=== PATIENT | male | born 1980 | race Caucasian/White ===

== ENCOUNTER 2020-06-04 13:04 | Emergency (ER) | payer OTHER, SELFPAY ==
[2020-06-04 13:17] VITALS: BP 168/104; PULSE 80; RESP 18; TEMP 36.9; O2SAT 100
--- NOTE | 2020-06-04 13:36 | ED.SKABFB ---
HPI - Skin/Abscess/Foreign Bdy General Chief complaint: Skin/Abscess/Foreign Body Stated complaint: spider bite on buttocks Time Seen by Provider: 06/04/20 13:09 History of Present Illness HPI narrative: Patient is a 40-year-old male who presents ER with concerns for abscess/infection to his left buttock. Reported he started having pain 2 days ago and is since increasing discomfort and redness. No fevers or chills or sweats. No drainage. Did not see a spider bite him. Related Data Home Medications Medication Instructions Recorded Confirmed lorazepam 06/04/20 Allergies Allergy/AdvReac Type Severity Reaction Status Date / Time No Known Allergies Allergy Unverified 06/04/20 13:16 Review of Systems Constitutional: Constitutional: Denies chills and Denies fever(s) Musculoskeletal: Musculoskeletal: Denies myalgias and Denies muscle cramps Integumentary/Breasts: Skin/Breast: Denies pruritus and Reports erythema PMFSH Past Medical History Medical History (Updated 06/04/20 @ 13:59 by Jefferson Oviedo MD) Anxiety Surgical History Surgical History (Updated 06/04/20 @ 13:37 by Jefferson Oviedo MD) No history of previous surgery Social History Social History (Updated 06/04/20 @ 13:37 by Jefferson Oviedo MD) Substance use: never Exam Narrative: Exam Narrative: GENERAL: Well-appearing, well-nourished, and in no acute distress. HEAD: Normocephalic, atraumatic. EXTREMITIES: Normal range of motion. No edema. SKIN: Warm, dry. Left buttock with erythema and induration with a small skin defect no bigger than 4 mm x 4 mm. No fluctuance noted. NEURO: Alert and oriented x3. PSYCH: Normal mood and affect. Course Vital Signs Vital signs: Vital Signs Temperature 98.5 F 06/04/20 13:17 Pulse Rate 80 06/04/20 13:17 Respiratory Rate 18 06/04/20 13:17 Blood Pressure 168/104 H 06/04/20 13:17 Pulse Oximetry 100 06/04/20 13:17 Temperature 98.5 F 06/04/20 13:17 Pulse Rate 80 06/04/20 13:17 Respiratory Rate 18 06/04/20 13:17 Blood Pressure 168/104 H 06/04/20 13:17 Pulse Oximetry 100 06/04/20 13:17 Procedures Abscess I/D other: Date of Incision: 06/04/20 Time of Incision: 13:40 Side (if applicable): left Local Anesthetic: lidocaine 1% and with epi Amount of anesthesia used (mL): 10 Technique: incised with #11 blade Irrigation: No Packing used?: plain I&D Results: Pus Discharge Plan Discharge Clinical Impression: Abscess of skin or subcutaneous tissue Patient Disposition: Home, Self-Care Condition: Stable Instructions: Abscess (ED) Additional Instructions: Return the ER if you have increased pain, you have fever over 100.4 ?F, or you have additional concerns. Take your full course of antibiotics. Prescriptions: New sulfamethoxazole-trimethoprim [Bactrim DS] 800-160 mg tablet 1 tablet PO Q12H Qty: 14 RF: 0 tramadol 50 mg tablet 50 mg PO Q6H PRN (Reason: pain) Qty: 10 RF: 0 No Action lorazepam 1 mg tablet RF: 0 Follow-up/Referrals: Hermes Jameson MD [Physician] - 1 Week PHYSICIAN,BELT BACK OPERATOR [Primary Care Provider] -
== END 2020-06-04 14:07 | disposition home or self-care (01) ==
PROVIDERS: Emergency Provider Emergency Medicine
DX: L02.31 Cutaneous abscess of buttock (principal); F41.9 Anxiety disorder, unspecified
CPT/HCPCS: 10061; 99282

== ENCOUNTER 2020-08-26 17:58 | Emergency (ER) | payer OTHER, SELFPAY | END 2020-08-26 19:00 | disposition left against medical advice (07) | LOC: ANHED 18:29 | DX: Z53.21 Procedure and treatment not carried out due to patient leaving prior to being seen by health care provider (principal) | CPT/HCPCS: 99199 ==

== ENCOUNTER 2020-12-28 13:02 | Emergency (ER) | payer OTHER, SELFPAY ==
[2020-12-28 13:09] VITALS: BP 162/83; PULSE 65; RESP 20; TEMP 36.3; O2SAT 100
--- NOTE | 2020-12-28 15:06 | PC.NURSE ---
CALLED FOR RECHECK VITAL SIGNS. NO RESPONSE
--- NOTE | 2020-12-28 15:58 | PC.NURSE ---
PT CALLED FOR VITALS A SECOND TIME. NO ANSWER.
== END 2020-12-28 15:58 | disposition left against medical advice (07) ==
DX: R51.9 Headache, unspecified (principal)
CPT/HCPCS: 99199

== ENCOUNTER 2023-09-27 21:08 | Emergency (ER) | payer OTHER, SELFPAY ==
--- NOTE | ~2023-09-27 | XR_ITS ---
EXAMINATION: XR chest 2V Exam Date/Time: 09/27/2023 22:00 CDT HISTORY: SOB, cough, tb exposure Comparison: 08/18/2015. RESULT: Lines, tubes, and devices: None. Lungs and pleura: Clear. Cardiomediastinal silhouette: Stable. Other: No acute osseous or upper abdominal finding. Degenerative changes in the bilateral shoulders. Loose joint bodies in the right shoulder. IMPRESSION: No acute cardiopulmonary process. Reviewed, dictated and finalized at location K.
--- NOTE | 2023-09-27 21:40 | ECG_ITS ---
SEE SCANNED COPY FOR CONFIRMED REPORT MTDD
[2023-09-27 21:52] VITALS: BP 182/101; PULSE 92; RESP 16; TEMP 36.9; O2SAT 96
[2023-09-27 22:05] LABS: Basophils Absolute Auto 0.1 K/mm3 (0.0-0.1); Basophils Percent Auto 0.6 % (0.2-1.2); Eosinophils Absolute Auto 0.4 K/mm3 (0-0.3); Eosinophils Percent Auto 2.6 % (0-4.4); Hematocrit 46.5 % (42.0-52.0); Hemoglobin 14.8 g/dL (14.0-18.0); Immature Granulocyte Absolute 0.08 K/mm3 (0.00-0.031); Immature Granulocyte Percent A 0.6 % (0-0.5); Lymphocytes Absolute Auto 1.25 K/mm3 (0.9-3.2); Lymphocytes Percent Auto 9.4 % (18.3-44.2); Mean Corpuscular HGB Conc 31.8 g/dl (32-36); Mean Corpuscular Hemoglobin 29.1 pg (26-34); Mean Corpuscular Volume 91.4 fl (80-100); Mean Platelet Volume 8.5 fl (7.4-10.4); Monocytes Absolute Auto 0.9 K/mm3 (0.1-0.6); Monocytes Percent Auto 6.6 % (2.6-8.5); Neutrophils Absolute Auto 10.7 K/mm3 (1.3-6.7); Neutrophils Percent Auto 80.2 % (45.5-73.1); Platelet Count Result 407 k/mm3 (150-375); Red Blood Count 5.09 M/mm3 (4.6-6.20); White Blood Count 13.3 K/mm3 (4.5-10.0)
[2023-09-27 22:15] LABS: Alanine Aminotransferase 40 U/L (6-50); Albumin Level 4.4 g/dL (3.5-5.1); Alkaline Phosphatase 109 U/L (38-126); Anion Gap 6 mmol/L (4-12); Aspartate Amino Transferase 35 U/L (17-59); Bilirubin,Total 0.6 mg/dL (0.2-1.3); Blood Urea Nitrogen 15 mg/dL (9-20); Calcium 9.8 mg/dL (8.4-10.2); Carbon Dioxide 27 mmol/L (22-30); Chloride 103 mmol/L (98-107); Estimated CRCL calculation 98 ml/min; Estimated Glomerular Filt Rate > 60; Glucose 134 mg/dL (65-110); Potassium 3.9 mmol/L (3.4-5.0); Sodium 136 mmol/L (137-145)
[2023-09-27 22:40] LABS: Influenza A QL RT-PCR Negative (Negative); Influenza B QL RT-PCR Negative (Negative); RSV RNA, RT-PCR Negative (Negative); SARS-CoV-2 RNA PCR Negative (Negative)
== END 2023-09-27 23:09 | disposition left against medical advice (07) ==
PROVIDERS: Emergency Provider Emergency Medicine
DX: R06.02 Shortness of breath (principal); Z20.822 Contact with and (suspected) exposure to COVID-19
CPT/HCPCS: 36415; 71046; 80053; 85025; 87637; 93005; 99199